=== PATIENT | male | born 1985 | race Caucasian/White ===

== ENCOUNTER 2018-01-13 17:23 | Emergency (ER) | payer OTHER ==
[~2018-01-13] VITALS: Ht 180.3 cm; Wt 68.0 kg
[2018-01-13] MEDS ORDERED: NOHOMEMEDICATIONS (17:34)
[2018-01-13] MEDS ORDERED: KEFLEX500 M1 PO (17:38)
[2018-01-13] MEDS ORDERED: BACTRIM DS TAB1 EACH PO (17:38)
[2018-01-13 17:49] VITALS: BP 135/66
== END 2018-01-13 17:49 | disposition home or self-care (01) ==
LOC: M.ERS 17:23
DX: R22.0 Localized swelling, mass and lump, head (principal); F32.9 Major depressive disorder, single episode, unspecified; F17.200 Nicotine dependence, unspecified, uncomplicated

== ENCOUNTER 2018-07-26 09:07 | Emergency (ER) | payer OTHER ==
[~2018-07-26] VITALS: Ht 180.3 cm; Wt 70.3 kg
[~2018-07-26 09:07] MED LIST: BACTRIM DS TAB1 EACH PO; KEFLEX500 M1 PO; NOHOMEMEDICATIONS
[2018-07-26 09:58] VITALS: BP 137/72
== END 2018-07-26 09:58 | disposition home or self-care (01) ==
LOC: M.ERS 09:07
DX: S01.81XA Laceration without foreign body of other part of head, initial encounter (principal); F32.9 Major depressive disorder, single episode, unspecified; W22.8XXA Striking against or struck by other objects, initial encounter; Y93.89 Activity, other specified; Y92.89 Other specified places as the place of occurrence of the external cause; Y99.0 Civilian activity done for income or pay